=== PATIENT | male | born 1955 ===

== ENCOUNTER 2022-01-04 06:54 | Day surgery (SDC) | payer BC | END 2022-01-04 23:52 | disposition home or self-care (01) | LOC: CT 06:54 | DX: I25.10 Atherosclerotic heart disease of native coronary artery without angina pectoris (principal) | CPT/HCPCS: 75571 ==

== ENCOUNTER 2022-09-02 06:15 | Day surgery (SDC) | payer BC ==
[~2022-09-02] VITALS: Ht 177.8 cm; Wt 110.0 kg
[~2022-09-02 06:15] MED LIST: AMLO5 PO; ATOR80 PO; Aspir 8181 MG PO; COLCRYS0.6 M1 PO; METAMUCIL POWD798 GM PO; METO25ER PO; MULTI-VITAMIN1 EAC2 PO; NITR.4SL SL; Prinivil10 MG PO
[2022-09-02] MEDS ORDERED: LOSA50 PO (06:50)
[2022-09-02] MEDS ORDERED: Flomax0.4 MG PO (06:50)
[2022-09-02] MEDS ORDERED: TRAZ100 PO (06:50)
--- NOTE | 2022-09-02 08:37 | NUR ---
PATIENT RETURNED FROM THE DIRECTOR ADULT VIA RECLINER AND SBAR FROM [facility], PATIENT PLACED ON THE MONITOR WITH CALL LIGHT IN REACH. VVS. TR BAND RIGHT RADIAL, SITE SOFT, NO HEMATOMA, NO BLEEDING. SIPPING COFFEE, DIET ORDERED.
[2022-09-02] MEDS ORDERED: Synthroid200 MCG PO (09:00)
[2022-09-02] MEDS ORDERED: CALCITRIOL0.5 MC1 PO (09:01)
--- NOTE | 2022-09-02 09:05 | NUR ---
REVEIWED MED RECONCILATION WITHT THE PATIENT AND CORRECTED ERRORS FOUND. VERIFIED MEDS WITH MD AND PRINT NEW MED REC FOR THE PATIENT FOR DISCHARGE.
--- NOTE | 2022-09-02 09:10 | NUR ---
DR. MACKAY AT THE BEDSIDE AND SPOKE TO PATIENT, AL QUESTIONS ANSWERED.
--- NOTE | 2022-09-02 09:50 | NUR ---
BEGAN REMOVING AIR FROM THE TR BAND. NO NUMBNESS OR TINGLING TO THE RIGHT HAND.
--- NOTE | 2022-09-02 10:41 | NUR ---
PATIENT UP OOR TO THE RESTRROM. DRESSED AND ALL BELONGINGS GATHERED. TR BAND REMOVED AND NO BLEEDING NOTED. SITE CLEANED AND CLOTH DOT PLACED TO THE RIGHT RADIAL SITE. LEFT AC PIV REMOVED AND PRESSURE DRESSING APPLIED. PATIENT AND RN REVIEWED ALL DISCHARGE INSTRUCTIONS AGAIN AND NO FURTHER QUESTIONS. IS PICKING PATIENT UP AT THE [facility]. PATIENT IS AMBULATORY TO THE [facility]. DISCHARGED HOME AT 1045
== END 2022-09-02 11:57 | disposition home or self-care (01) ==
LOC: MHTC 06:15
DX: I25.10 Atherosclerotic heart disease of native coronary artery without angina pectoris (principal); I47.20 Ventricular tachycardia, unspecified
CPT/HCPCS: 76937; 93454; 99152; 99153; A9270; C1769; C1887; C1894; J1644; J3010; J7030; J7050; Q9967